=== PATIENT | female | born 1965 | race Caucasian/White ===

== ENCOUNTER 2024-08-09 15:53 | Outpatient (CLI) | payer BC, SELFPAY ==
[2024-08-09 16:53] LABS: Basophils # 0.1 K/mm3 (0-0.2); Basophils % 1.3 % (0.1-2.0); Eosinophils # 0.4 K/mm3 (0.0-0.4); Eosinophils % 7.6 % (0.1-12.0); Hemoglobin 9.7 g/dL (12.2-16.2); Lymphocytes # 1.7 K/mm3 (0.7-4.5); Lymphocytes % 31.8 % (10-50); Mean Corpuscular HGB Conc 31.3 g/dL (31.8-35.4); Mean Corpuscular Hemoglobin 25.4 pg (27.0-31.2); Mean Corpuscular Volume 81.2 fl (81-99); Mean Platelet Volume 9.6 fl (7.4-10.4); Monocytes # 0.6 K/mm3 (0.1-1.0); Monocytes % 10.9 % (1.7-9.3); Neutrophils # 2.5 K/mm3 (1.8-7.8); Neutrophils % 48.2 % (37.0-80.0); Nucleated Red Blood Cells # 0 10^3/uL; Nucleated Red Blood Cells % 0 %; Platelet Count 351 K/mm3 (142-424); Red Blood Count 3.82 M/mm3 (4.20-5.40); Red Cell Distribution Width 15.6 % (11.5-17.5); Red Cell Distribution Width-SD 45.7 fL; White Blood Count 5.3 K/mm3 (4.8-10.8)
[2024-08-09 17:15] LABS: Alanine Aminotransferase 35 U/L (12-78); Albumin Level 3.9 g/dl (3.5-5.0); Albumin/Globulin Ratio 1.5 (1.1-1.8); Alkaline Phosphatase 62 U/L (38-126); Anion Gap 12.6 mEq/L (5-15); Aspartate Amino Transferase 36 U/L (14-36); Bilirubin,Total 0.2 mg/dl (0.2-1.3); Blood Urea Nitrogen 28 mg/dl (7-17); Calcium 9.2 mg/dl (8.4-10.2); Carbon Dioxide 28 mmol/L (22.0-30.0); Chloride 103 mmol/L (98-107); Chol/HDL Ratio 2.1 (1-3.5); Cholesterol 216 mg/dl (140-200); Estimated Glomerular Filt Rate 102 ml/min (>60); GFR (African American) 123 ML/MIN (>60); Globulin 2.6 g/dL (1.3-3.2); Glucose 86 mg/dl (74-100); HDL Cholesterol 101 mg/dl (40-60); Potassium 4.6 mmoL/L (3.5-5.1); Sodium 139 mmol/L (136-145); Total Protein,Serum 6.5 g/dl (6.3-8.2); Triglycerides 66 mg/dl (30-150); VLDL Cholesterol 13 mg/dL (0-40)
[2024-08-09 17:26] LABS: Direct LDL Cholesterol 95.34 mg/dL (100-129)
[2024-08-09 17:45] LABS: Thyroid Stimulating Hormone 4.99 uIU/mL (0.465-4.68)
[2024-08-09 21:01] LABS: Hemoglobin A1C 5.4 % (4.0-6.0)
[2024-08-11 17:10] LABS: QuantiFERON-TB Gold Plus Negative (Negative)
== END 2024-08-09 23:59 | disposition home or self-care (01) ==
LOC: LAB 15:59
PROVIDERS: Visit Provider Family Medicine
DX: Q61.01 Congenital single renal cyst (principal); R55 Syncope and collapse; E03.9 Hypothyroidism, unspecified
CPT/HCPCS: 36415; 80053; 80061; 83036; 84443; 85025; 86480

== ENCOUNTER 2024-08-25 14:55 | Outpatient (CLI) | payer BC, SELFPAY ==
--- NOTE | 2024-08-25 14:57 | US_ITS ---
FINAL REPORT CLINICAL HISTORY: ABD PAIN HISTORY OF RENAL CYST FINDINGS: RENAL ULTRASOUND Ultrasound images of the kidneys were obtained. The right kidney measures 11 cm in length. It is normal echogenicity. There is a 1 cm cyst swelling. There is minimal right hydronephrosis. The left kidney measures 14.0 cm in length. There is a cyst measuring up to 6.9 cm. There is mild to moderate hydronephrosis. IMPRESSION: Bilateral hydronephrosis. Consider CT to better evaluate for source of obstruction. Bilateral renal cysts. Reviewed, Interpreted and Dictated by Matt Wilkins MD Transcribed by Tia Chavez Authenticated and [facility]
== END 2024-08-25 23:59 | disposition home or self-care (01) ==
LOC: RAD 14:55
PROVIDERS: PCP Family Medicine; Visit Provider Family Medicine
DX: Q61.01 Congenital single renal cyst (principal); N13.30 Unspecified hydronephrosis
CPT/HCPCS: 76770

== ENCOUNTER 2025-01-12 13:36 | Outpatient (CLI) | payer BC, SELFPAY ==
--- NOTE | 2025-01-12 13:39 | MM_ITS ---
PROCEDURE INFORMATION: Exam: Bilateral Diagnostic Breast Tomosynthesis Exam date and time: 01/12/2025 1:40 PM Age: 59 years old Clinical indication: Concern for left lump. Maternal cousin had breast cancer. TECHNIQUE: Imaging protocol: Bilateral Diagnostic tomosynthesis and 2D mammography including computer-aided detection (CAD) when performed. Unilateral or bilateral exam. COMPARISON: [facility] SCREENING 12/29/2013 7:37 AM FINDINGS: MAMMOGRAPHY: Breast mammogram findings: Breast composition: The breasts are almost entirely fatty. Mass: None. Architectural distortion: None. Calcifications: No suspicious calcifications. Asymmetric density: None. Skin thickening: None. Axillary adenopathy: None. Other: Palpable concern corresponds to loop recorder in the left upper inner quadrant, which limits evaluation and accentuates the importance of clinical breast exam. No other related mammographic findings. IMPRESSION: See comment Palpable concern corresponds to loop recorder in the left upper inner quadrant, correlate clinically. Sonography can be obtained if there is further clinical concern. Further evaluation of a palpable abnormality should be based on clinical grounds regardless of radiographic findings or lack thereof. No mammographic evidence of malignancy. Annual screening mammogram recommended unless otherwise clinically indicated. ASSESSMENT: BI-RADS Category 2: Benign.
== END 2025-01-12 23:59 | disposition home or self-care (01) ==
LOC: RAD 13:37
PROVIDERS: PCP Family Medicine; Visit Provider Family Medicine
DX: N63.21 Unspecified lump in the left breast, upper outer quadrant (principal); Z95.818 Presence of other cardiac implants and grafts; Z80.3 Family history of malignant neoplasm of breast
CPT/HCPCS: 77062; 77066; G0279